=== PATIENT | female | born 1955 | race Caucasian/White ===

== ENCOUNTER → 2019-04-06 | Outpatient (CLI) | payer BC ==
[2013-11-30 17:46] VITALS: BP 111/57
[~2019-04-06] MED LIST: ACET500T33 PO; ALLO100T PO; AMLO1CAP13 PO; FLUT1DIS IH; IBUP-1060 PO; LEVO25TA4 PO; METF500T16 PO; MORP60CA17 PO; MORP60TA37 PO; PARO30TA45 PO; PRAV10TA2 PO; TRAZ-86 PO; VENTOLIN HFA18 GM IH
--- NOTE | 2019-04-06 16:21 | CARD ---
MR#: [id number] Date of Study: 04/06/2019 Ordering Physician: RUSSELL ZAMUDIO, Referring Physician: RUSSELL ZAMUDIO, Tech: Cony Singh [facility] APPROVED REPORT EXAM: Two-dimensional and M-mode echocardiogram with Doppler and color Doppler. Other Information Quality : Technically LimitedHR: 98bpm Rhythm : NSRTechnically limited study due to body habitus. INDICATION Murmur 2D DIMENSIONS RVDd2.8 (2.9-3.5cm)Left Atrium(2D)4.1 (1.6-4.0cm) IVSd0.9 (0.7-1.1cm)Aortic Root(2D)2.6 (2.0-3.7cm) LVDd4.8 (3.9-5.9cm)LVOT Diameter1.9 (1.8-2.4cm) PWd0.6 (0.7-1.1cm)LVDs2.6 (2.5-4.0cm) FS (%) 45.8 %SV81.6 ml LVEF(%)70.0 (>50%) Aortic Valve AoV Peak Beau.267.7cm/sAoV VTI40.6cm AO Peak GR.28.7mmHgLVOT Peak Beau.126.1cm/s LVOT VTI 17.97cmAO Mean GR.18mmHg CARRIE (VMAX)1.42na9JAJ (VTI)1.29cm2 AI P 1/2 Zltt079oy Mitral Valve MV E Bpbkzaly30.4cm/sMV DECEL BGPN031lo MV A Ypyiidwu799.2cm/sMV BVZ71dl E/A Ratio0.7MVA (PHT)3.74cm2 TDI E/Lateral E'10.7E/Medial E'9.4 Pulmonary Valve PV Peak Oirnwobo102.1cm/sPV Peak Grad.7mmHg Pulmonary Vein S1 Hhpycncd61.2cm/sD2 Niqylvzy41.7cm/s PVa thvuehgr298ydpl LEFT VENTRICLE The left ventricle is normal size. There is normal left ventricular wall thickness. The left ventricu lar systolic function is normal. The Ejection Fraction is 65-70%. There is normal LV segmental wall m otion. Transmitral Doppler flow pattern is Grade I-abnormal relaxation pattern. RIGHT VENTRICLE The right ventricle is normal size. There is normal right ventricular wall thickness. The right ventr icular systolic function is normal. ATRIA The left atrium is mildly dilated. The right atrium size is normal. The interatrial septum is intact with no evidence for an atrial septal defect or patent foramen ovale as noted on 2-D or Doppler imagi ng. AORTIC VALVE The aortic valve is not well visualized. Doppler and Color Flow revealed no significant aortic regurg itation. There is no significant aortic valvular stenosis. There is no aortic valvular vegetation. MITRAL VALVE The mitral valve is normal in structure and function. There is no evidence of mitral valve prolapse. There is no mitral valve stenosis. Doppler and Color Flow revealed no mitral valve regurgitation note d. TRICUSPID VALVE The tricuspid valve is normal in structure and function. Doppler and Color Flow revealed no tricuspid valve regurgitation noted. There is no tricuspid valve prolapse or vegetation. There is no tricuspid valve stenosis. PULMONIC VALVE The pulmonic valve is not well visualized. GREAT VESSELS The aortic root is normal in size. The ascending aorta is normal in size. The IVC is normal in size a nd collapses >50% with inspiration. PERICARDIAL EFFUSION There is no evidence of significant pericardial effusion. Critical Notification Critical Value: No <Conclusion> The left ventricular systolic function is normal. The Ejection Fraction is 65-70%. There is normal LV segmental wall motion. Transmitral Doppler flow pattern is Grade I-abnormal relaxation pattern. There is no evidence of significant pericardial effusion. Signed by : Morris Simmons, Electronically Approved : 04/06/2019 16:21:00
== END | disposition home or self-care (01) ==
LOC: ECHO 14:59
PROVIDERS: ATTEND Family Medicine
DX: I51.7 Cardiomegaly (principal); R01.1 Cardiac murmur, unspecified
CPT/HCPCS: 93306

== ENCOUNTER 2020-10-08 17:08 | Inpatient (IN) | payer BC ==
[~2020-10-08] VITALS: Ht 157.5 cm; Wt 107.0 kg
[~2020-10-08 17:08] MED LIST changes: +TRAZ-123 PO; -TRAZ-86 PO
--- NOTE | 2020-10-08 18:09 | PHYS DOC ---
Past Medical History Past Medical History: CHF, COPD, Fibromyalgia, Pneumonia, Other Additional Past Medical Histor: W Past Surgical History: Appendectomy Additional Past Surgical Histo: exploratory lab Alcohol Use: None Drug Use: None General Adult EDM: Chief Complaint: CHEST PAIN HPI: HPI: 65-year-old female past medical history of hypothyroidism, obesity, COPD on 2L NC, hypertension, fibromyalgia (hydrocodone 10/apap 325 bid), hyperlipidemia and pulmonary hypertension, presents the ED with complaints of left-sided sharp, nonradiating chest pain that started last night and then recurred this morning around 8 AM, lasting for approximately 15 minutes. Took 1 baby aspirin this morning. History of a cardiac murmur. Follows with Dr. Simmons with unremarkable cardiac stress in 2019. Unknown family medical history -patient is adopted. EMR was reviewed and patient had echocardiogram in March 2019 that showed normal EF. No personal history of Covid, coagulopathy/DVT/PE, arrhythmia, NSTEMI, CAD or STEMI. Patient present in ED with her , consents for her medical knowledge. Review of Systems: Review of Systems: Constitutional: Denies fever or chills. [] Eyes: Denies change in visual acuity. [] HENT: Denies nasal congestion or sore throat. [] Respiratory: Denies cough or shortness of breath. [] Cardiovascular: Denies syncope, hemoptysis or lower extremity edema GI: Denies abdominal pain, nausea, vomiting, bloody stools or diarrhea. [] : Denies dysuria or hematuria Musculoskeletal: Denies back pain or joint pain. [] Integument: Denies rash or diaphoresis Neurologic: Denies headache, focal weakness or sensory changes. [] Endocrine: Denies polyuria or polydipsia. [] Lymphatic: Denies swollen glands. [] Psychiatric: Denies depression or anxiety. [] Heart Score: C/O Chest Pain: Yes HEART Score for Chest Pain: HEART Score for Chest Pain Response (Comments) Value History Slighlty/Non-Suspicious 0 ECG Nonspecific Repolarizatio 1 Age > 65 2 Risk Factors >3 Risk Factors or Hx CAD 2 Troponin < Normal Limit 0 Total 5 Risk Factors: Risk Factors: DM, Current or recent (<one month) smoker, HTN, HLP, family history of CAD, obesity. Risk Scores: Score 0 - 3: 2.5% MACE over next 6 weeks - Discharge Home Score 4 - 6: 20.3% MACE over next 6 weeks - Admit for Clinical Observation Score 7 - 10: 72.7% MACE over next 6 weeks - Early Invasive Strategies Allergies: Allergies: Allergies Coded Allergies Type Severity Reaction Last Updated Verified latex Allergy Unknown 11/30/13 Yes Physical Exam: PE: Constitutional: Well developed, well nourished, no acute distress, non-toxic appearance, obese HENT: Normocephalic, atraumatic, Eyes: EOMI, conjunctiva normal, no discharge. Neck: Normal range of motion, supple, no JVD Cardiovascular: S1/2 present, regular rhythm, moderate systolic murmur over right upper parasternal space Lungs & Thorax: Speaking in full sentences, bilateral equal chest rise, no tachypnea or increased work of breathing Abdomen: soft, no tenderness, Skin: Warm, dry, no erythema, no rash. [] Back: No tenderness, no CVA tenderness. [] Extremities: No tenderness, no cyanosis, no lower extremity edema Neurologic: Alert and oriented X 3, normal motor function, normal sensory function, no focal deficits noted. [] Psychologic: Affect normal, judgement normal, mood normal. [] EKG: EKG: Sinus tachycardia 103 bpm, no axis deviation, normal intervals, T wave inversion lead III, Q-wave lead III, no S1, no ST elevations or ST depressions, no active chest pain in ED on presentation Radiology/Procedures: Radiology/Procedures: IMAGING REPORT Signed PATIENT: OLIVA DE LA ROSA ACCOUNT: [id number] : 1955 LOCATION: ER AGE: 65 SEX: F EXAM STATUS: REG ER ORD. PHYSICIAN: ZHANG CASTRO DO REASON: cp PROCEDURE: PORTABLE CHEST 1V XR CHEST 1V CLINICAL INDICATIONS: Chest pain: COMPARISON: November 30, 2013. Findings: Chronic interstitial thickening or chronic bronchitis is seen bilaterally. No new lung consolidation or Jenna B line's or pleural effusion or pneumothorax is seen. Heart size is prominent but stable. Mediastinum and pulmonary vasculature and both cristo are unchanged. IMPRESSION: Chronic interstitial thickening or chronic bronchitis is seen bilaterally. No new abnormality. Stable cardiomegaly. Electronically signed by: Terence Vasquez MD (10/08/2020 7:06 PM) [id number] DICTATED and SIGNED BY: TERENCE VASQUEZ MD DATE: 10/08/20 [id number] 0 IMAGING REPORT Signed PATIENT: OLIVA DE LA ROSA ACCOUNT: [id number] : 1955 LOCATION: ER AGE: 65 SEX: F EXAM STATUS: REG ER ORD. PHYSICIAN: ZHANG CASTRO DO REASON: cp, r/o pe, OMNI 350, 100 ML IV PROCEDURE: CT ANGIOGRAPHY CHEST CTA chest with contrast dated 10/08/2020. No comparison available. Clinical data indication: Chest pain. TECHNIQUE: Contiguous axial imaging the chest performed following the intravenous administration of 80 cc Isovue-370. Study was performed as dedicated PE protocol with thin cut coronal MIPS 3-D reconstruction. One or more of the following individualized dose reduction techniques were utilized for this examination: 1. Automated exposure control 2. Adjustment of the mA and/or kV according to patient size 3. Use of iterative reconstruction technique. FINDINGS: Contrast bolus is adequate. No evidence of central, lobar or segmental pulmonary embolus. Subsegmental branches are not well evaluated based on technique. 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 The main pulmonary artery is mildly dilated measuring 3.5 cm suggesting pulmonary hypertension. Heart size is mildly enlarged. No pericardial effusion. No mediastinal, hilar or axillary lymphadenopathy. Borderline enlarged subcarinal and bilateral hilar lymph nodes measure up to 8 mm short axis, nonspecific. Scattered coronary calcifications. No axillary or supraclavicular lymphadenopathy. Central airways are patent. There is irregular linear peripheral opacity throughout both lungs. Diffuse bronchiectasis. No consolidation or pleural effusion. No pneumothorax. Mild emphysema. Images of the upper abdomen are unremarkable. Liver is somewhat enlarged and nodular in contour. Small hiatal hernia. Bone windows show no acute findings. Multilevel spondylosis. IMPRESSION: 1. No evidence of central, lobar or segmental pulmonary embolus. 2. Basilar predominant irregular interstitial opacities and bronchiectasis. This is likely related to chronic interstitial lung disease. Superimposed low-grade edema not excluded. 3. 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 Electronically signed by: Varun Tamayo MD (10/08/2020 11:23 PM) [facility] DICTATED and SIGNED BY: VARUN TAMAYO MD DATE: 10/08/20 [id number] 0 Course & Med Decision Making: Course & Med Decision Making Pertinent Labs and Imaging studies reviewed. (See chart for details) Lengthy ED stay due to high volume in ED, ed acuity of critical patients and indecisiveness of patient regarding my recommendations -this required multiple discussions with pt and her with myself and rn. Concern for atypical chest pain/unstable angina in a moderate risk for Mace/heart score. No stress test in past 2 years. panel monitor reviewed by RN and myself and is concernrf for nonsustained V. tach < 10 seconds. 2 troponins negative. D-dimer is elevated but CTA with no PE, coronary calcifications present. Will admit for further med ical management and cardiology consultation. Patient stable at time of admission and she agrees with this plan. I have spoken with the patient and/or caregivers. I have explained the patient's condition, diagnosis and treatment plan based on the information available to me at this time. I have answered the patient's and/or caregivers questions and answered any concerns. The patient and/or caregivers have as good an understanding of the patient's diagnosis, condition and treatment plan as can be expected at this point. The patient has been stabilized within the capability of the emergency department. The patient will be transported for further care and management or will be moved to an observation or inpatient service. I have communicated with the staff or medical practitioner taking over this patient's care. Marlyn Disclaimer: Marlyn Disclaimer: This electronic medical record was generated, in whole or in part, using a voice recognition dictation system. Departure Departure Impression: Primary Impression: Atypical chest pain Additional Impression: Ventricular tachycardia, nonsustained Disposition: ADMITTED INPATIENT Admitting Physician: BRYAN (Dr. Cadleron) Condition: GUARDED Referrals: VARUN ZAMUDIO MD (PCP) ZHANG CASTRO DO Oct 08, 2020 18:09
[2020-10-08 18:29] LABS: BASO % 1 % (0-3); EOS # 0.2 x10^3/uL (0.0-0.7); EOS % 3 % (0-3); HEMATOCRIT 38.8 % (36.0-47.0); HEMOGLOBIN 13.4 g/dL (12.0-15.5); LYMPH # 2.2 x10^3/uL (1.0-4.8); LYMPH % 29 % (24-48); MEAN CORPUSCULAR HEMOGLOBIN 35 pg (25-35); MEAN CORPUSCULAR HGB CONC 35 g/dL (31-37); MEAN CORPUSCULAR VOLUME 100 fL (79-100); MONO # 0.6 x10^3/uL (0.0-1.1); MONO % 8 % (0-9); NEUT # 4.4 x10^3/uL (1.8-7.7); NEUT % 59 % (31-73); PLATELET COUNT 170 x10^3/uL (140-400); RED BLOOD COUNT 3.86 x10^6/uL (3.50-5.40); WHITE BLOOD COUNT 7.4 x10^3/uL (4.0-11.0)
[2020-10-08 18:44] LABS: BARBITURATES NEG (NEG); BENZODIAZEPINES NEG (NEG); CANNABINOIDS POS (NEG); COCAINE NEG (NEG); METHADONE NEG (NEG); OPIATES POS (NEG); PHENCYCLIDINE NEG (NEG)
[2020-10-08 18:45] LABS: AMPHETAMINE/METHAMPHETAMINE NEG (NEG)
[2020-10-08 18:47] LABS: CALCIUM 8.7 mg/dL (8.5-10.1); CREATININE 0.8 mg/dL (0.6-1.0); POTASSIUM 4.4 mmol/L (3.5-5.1)
[2020-10-08 18:49] LABS: ALBUMIN/GLOBULIN RATIO 1.3 (1.0-1.7); MAGNESIUM 1.9 mg/dL (1.8-2.4); TOTAL BILIRUBIN 0.7 mg/dL (0.2-1.0); TOTAL PROTEIN 7.2 g/dL (6.4-8.2)
--- NOTE | 2020-10-08 19:09 | RAD ---
XR CHEST 1V CLINICAL INDICATIONS: Chest pain: COMPARISON: November 30, 2013. Findings: Chronic interstitial thickening or chronic bronchitis is seen bilaterally. No new lung cons olidation or Jenna B line's or pleural effusion or pneumothorax is seen. Heart size is prominent but stable. Mediastinum and pulmonary vasculature and both cristo are unchanged. IMPRESSION: Chronic interstitial thickening or chronic bronchitis is seen bilaterally. No new abnorma lity. Stable cardiomegaly. Electronically signed by: Raghu Vasquez MD (10/08/2020 7:06 PM) [id number]
[2020-10-08] MEDS ORDERED: CONTRAST GIVEN. MC PRN (21:45)
[2020-10-08] MEDS ORDERED: IOHEXOL 350 MG/ML 100 ML VIAL. IV ONE (22:00)
--- NOTE | 2020-10-08 23:25 | RAD ---
CTA chest with contrast dated 10/08/2020. No comparison available. Clinical data indication: Chest pain. TECHNIQUE: Contiguous axial imaging the chest performed following the intravenous administration of 80 cc Isovue -370. Study was performed as dedicated PE protocol with thin cut coronal MIPS 3-D reconstruction. One or more of the following individualized dose reduction techniques were utilized for this examinat ion: 1. Automated exposure control 2. Adjustment of the mA and/or kV according to patient size 3. Use of iterative reconstruction technique. FINDINGS: Contrast bolus is adequate. No evidence of central, lobar or segmental pulmonary embolus. Subsegmenta l branches are not well evaluated based on technique. There is anomalous drainage of the left upper l obe pulmonary vein into the left brachiocephalic vein and SVC. The main pulmonary artery is mildly di lated measuring 3.5 cm suggesting pulmonary hypertension. Heart size is mildly enlarged. No pericardial effusion. No mediastinal, hilar or axillary lymphadenop athy. Borderline enlarged subcarinal and bilateral hilar lymph nodes measure up to 8 mm short axis, n onspecific. Scattered coronary calcifications. No axillary or supraclavicular lymphadenopathy. Central airways are patent. There is irregular linear peripheral opacity throughout both lungs. Diffu se bronchiectasis. No consolidation or pleural effusion. No pneumothorax. Mild emphysema. Images of the upper abdomen are unremarkable. Liver is somewhat enlarged and nodular in contour. Smal l hiatal hernia. Bone windows show no acute findings. Multilevel spondylosis. IMPRESSION: 1. No evidence of central, lobar or segmental pulmonary embolus. 2. Basilar predominant irregular interstitial opacities and bronchiectasis. This is likely related to chronic interstitial lung disease. Superimposed low-grade edema not excluded. 3. 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 Electronically signed by: Varun Tamayo MD (10/08/2020 11:23 PM) [facility]
--- NOTE | 2020-10-09 00:27 | EKG ---
[facility] [address] [place] [address] Test Date: 2020-10-08 Test Time: 17:29:50 Pat Name: OLIVA DE LA ROSA Department: Room: Gender: F Bundle Clerk: : 1955 Requested By: ZHANG CASTRO Order Number: [id number] Reading MD: Measurements Intervals [place] Rate: 103 P: 51 [place]: 162 QRS: 15 QRSD: 92 T: 18 QT: 344 QTc: 453 Interpretive Statements SINUS TACHYCARDIA QRS(T) CONTOUR ABNORMALITY CONSIDER ANTEROLATERAL MYOCARDIAL DAMAGE POSSIBLY ABNORMAL ECG RI6.01 No previous ECG available for comparison
[2020-10-09] MEDS ORDERED: HYDROmorphone 2 MG/ML VIAL IVP ONE (01:00)
[2020-10-09] MEDS ORDERED: amLODIPine BESYLATE 10 MG TABLET PO ONE (04:15)
[2020-10-09] MEDS ORDERED: LISINOPRIL 20 MG TABLET PO ONE (04:15)
--- NOTE | 2020-10-09 08:06 | PDOC1 ---
History and Physical Date of Admission Date of Admission DATE: 10/09/20 TIME: 08:00 Identification/Chief Complaint Chief Complaint Chest pain Source Source: Patient History of Present Illness History of Present Illness Ms Kirkland is a 65-year-old female past medical history of hypothyroidism, obesity, COPD on 2L NC, hypertension, fibromyalgia (hydrocodone 10/apap 325 bid), hyperlipidemia and pulmonary hypertension, presents the ED with complaints of left-sided sharp, nonradiating chest pain that started last night and then recurred 10/08 in the morning around 8 AM, lasting for approximately 15 minutes. Took 1 baby aspirin this morning. History of a cardiac murmur. Follows with Dr. Simmons with unremarkable cardiac stress June 2019, low risk study. Unknown family medical history -patient is adopted. EMR was reviewed and patient had echocardiogram in March 2019 that showed normal EF. No personal history of Covid, coagulopathy/DVT/PE, arrhythmia, NSTEMI, CAD or STEMI. She has history of peptic ulcer disease and GERD. Has previously been on PPI. She is never seen a hired hand. She feels like this is probably fibromyalgia. EKG appears sinus tachycardia with rate 103 bpm with Q waves seen in anterior lateral leads indicating possible prior cardiac event. No acute ST segment elevations or T wave inversions. Chest radiograph with chronic bibasilar interstitial changes. Labs with WBC 7.4, Hb 13.4, platelets 170, NA 143, K4.4, BUN 12, CR 0.8, glucose 85, lipase 42, LFTs otherwise within normal laboratory limits. Troponin 0, D- dimer 2.64. Cannabinoids and opioids on UDS. With elevated D-dimer patient underwent a CTPA which was negative for acute pulmonary embolism. Chronic bibasilar interstitial changes are still noted. Patient admitted for further care. Past Medical History Cardiovascular: CHF, HTN Pulmonary: Bronchitis, COPD CENTRAL NERVOUS SYSTEM: Other Musculoskeletal: low back pain Past Surgical History Past Surgical History: Appendectomy, Hysterectomy Family History Family History: Family History Unknown, Adopted Social History Smoke: No ALCOHOL: rare Drugs: None Current Problem List Problem List Problems Medical Problems: (1) Atypical chest pain Status: Acute (2) Ventricular tachycardia, nonsustained Status: Acute Current Medications Current Medications Current Medications Iohexol (Omnipaque 350 Mg/ml) 100 ml 1X ONCE IV ; Start 10/08/20 at 22:00; Stop 10/08/20 at 22:01; Status DC Info (CONTRAST GIVEN -- Rx MONITORING) 1 each PRN DAILY PRN MC SEE COMMENTS; Start 10/08/20 at 21:45; Stop 10/10/20 at 21:44 Hydromorphone HCl (Dilaudid) 1 mg 1X ONCE IVP Last administered on 10/09/20at 01:09; Start 10/09/20 at 01:00; Stop 10/09/20 at 01:01; Status DC Amlodipine Besylate (Norvasc) 10 mg 1X ONCE PO Last administered on 10/09/20at 04:38; Start 10/09/20 at 04:15; Stop 10/09/20 at 04:16; Status DC Lisinopril (Prinivil) 20 mg 1X ONCE PO Last administered on 10/09/20at 04:38; Start 10/09/20 at 04:15; Stop 10/09/20 at 04:16; Status DC Active Scripts Active Reported Ms Contin (Morphine Sulfate) 60 Mg Tablet.er 60 Mg PO BID Tylenol Extra Strength (Acetaminophen) 500 Mg Tablet 500 Mg PO Q6HRS PRN Paxil (Paroxetine Hcl) 30 Mg Tablet 60 Mg PO HS Advair 100-50 Diskus (Fluticasone/Salmeterol) 1 Each Disk.w.dev 1 Each IH BID Allopurinol 100 Mg Tablet 100 Mg PO QHS Amlodipine-Benazepril 10-20 Mg (Amlodipine Besylate/Benazepril) 1 Each Capsule 1 Each PO QHS Pravastatin Sodium 10 Mg Tablet 10 Mg PO QHS Levothyroxine Sodium 25 Mcg Tablet 25 Mcg PO DAILY Allergies Allergies: Coded Allergies: latex (Verified Allergy, Intermediate, 10/09/20) ROS General: YES: Fatigue, Malaise; No: Chills, Night Sweats, Appetite, Other PSYCHOLOGICAL ROS: No: Anxiety, Behavioral Disorder, Concentration difficultie, Decreased libido, Depression, Disorientation, Hallucinations, Hostility, Irritablity, Memory difficulties, Mood Swings, Obsessive thoughts, Physical abuse, Sexual abuse, Sleep disturbances, Suicidal ideation, Other Eyes: No Blurry vision, No Decreased vision, No Double vision, No Dry eyes, No Excessive tearing, No Eye Pain, No Itchy Eyes, No Loss of vision, No Photophobia, No Scotomata, No Uses contacts, No Uses glasses, No Other HEENT: No: Heacaches, Visual Changes, Hearing change, Nasal congestion, Nasal discharge, Oral lesions, Sinus pain, Sore Throat, Epistaxis, Sneezing, Snoring, Tinnitus, Vertigo, Vocal changes, Other ALLERGY AND IMMUNOLOGY: No: Hives, Insect Bite Sensitivity, Itchy/Watery Eyes, Nasal Congestion, Post Nasal Drip, Seasonal Allergies, Other Hematological and Lymphatic: No: Bleeding Problems, Blood Clots, Blood Transfusions, Brusing, Night Sweats, Pallor, Swollen Lymph Nodes, Other ENDOCRINE: No: Breast Changes, Galactorrhea, Hair Pattern Changes, Hot Flashes, Malaise/lethargy, Mood Swings, Palpitations, Polydipsia/polyuria, Skin Changes, Temperature Intolerance, Unexpected Weight Changes, Other Respiratory: No: Cough, Hemoptysis, Orthopnea, Pleuritic Pain, Shortness of breath, SOB with excertion, Sputum Changes, Stridor, Tachypnea, Wheezing, Other Cardiovascular: yes Chest Pain; No Palpitations, No Orthopnea, No Paroxysmal Noc. Dyspnea, No Edema, No Lt Headedness, No Other Gastrointestinal: Yes Nausea; No Vomiting, No Abdominal Pain, No Diarrhea, No Constipation, No Melena, No Hematochezia, No Other Genitourinary: No Dysuria, No Frequency, No Incontinence, No Hematuria, No Retention, No Discharge, No Urgency, No Pain, No Flank Pain, No Other, No , No , No , No , No , No , No Musculoskeletal: No Gait Disturbance, No Joint Pain, No Joint Stiffness, No Joint Swelling, No Muscle Pain, No Muscular Weakness, No Pain In:, No Swelling In:, No Other Neurological: No Behavorial Changes, No Bowel/Bladder ControlChng, No Confusion, No Dizziness, No Gait Disturbance, No Headaches, No Impaired Coord/balance, No Memory Loss, No Numbness/Tingling, No Seizures, No Speech Problems, No Tremors, No Visual Changes, No Weakness, No Other Skin: No Dry Skin, No Eczema, No Hair Changes, No Lumps, No Mole Changes, No Mottling, No Nail Changes, No Pruritus, No Rash, No Skin Lesion Changes, No Other, No Acne Physical Exam General: Alert, Oriented X3, Cooperative, No acute distress HEENT: Atraumatic, PERRLA, EOMI, Mucous membr. moist/pink Lungs: Other (Bilateral crackles) Heart: S1S2, RRR, no thrills, no rubs, no gallops, no murmurs Abdomen: Normal bowel sounds, Soft, No tenderness, No hepatosplenomegaly, No masses Rectal Exam: not examined Extremities: No clubbing, No cyanosis, No edema, Normal pulses, No tenderness/swelling Skin: No rashes, No breakdown, No significant lesion Neuro: Normal gait, Normal speech, Strength at 5/5 X4 ext, Normal tone, Sensation intact, Cranial nerves 3-12 NL, Reflexes 2+ Psych/Mental Status: Mental status NL, Mood NL Vitals Vitals Vital Signs Date Time Temp Pulse Resp B/P (MAP) Pulse Ox O2 Delivery O2 Flow Rate FiO2 10/09/20 04:38 93 106/62 10/09/20 04:37 18 93 Nasal Cannula 2.0 10/09/20 03:47 98.6 98.6 Labs Labs Laboratory Tests Test 10/08/20 18:10 10/08/20 18:20 10/08/20 21:45 10/09/20 01:05 Urine Opiates Screen Pos (NEG) Urine Methadone Screen Neg (NEG) Urine Barbiturates Neg (NEG) Urine Phencyclidine Screen Neg (NEG) Urine Amphetamine/Methamphetamine Neg (NEG) Urine Benzodiazepines Screen Neg (NEG) Urine Cocaine Screen Neg (NEG) Urine Cannabinoids Screen Pos (NEG) Urine Ethyl Alcohol Neg (NEG) White Blood Count 7.4 x10^3/uL (4.0-11.0) Red Blood Count 3.86 x10^6/uL (3.50-5.40) Hemoglobin 13.4 g/dL (12.0-15.5) Hematocrit 38.8 % (36.0-47.0) Mean Corpuscular Volume 100 fL (79-100) Mean Corpuscular Hemoglobin 35 pg (25-35) Mean Corpuscular Hemoglobin Concent 35 g/dL (31-37) Red Cell Distribution Width 14.0 % (11.5-14.5) Platelet Count 170 x10^3/uL (140-400) Neutrophils (%) (Auto) 59 % (31-73) Lymphocytes (%) (Auto) 29 % (24-48) Monocytes (%) (Auto) 8 % (0-9) Eosinophils (%) (Auto) 3 % (0-3) Basophils (%) (Auto) 1 % (0-3) Neutrophils # (Auto) 4.4 x10^3/uL (1.8-7.7) Lymphocytes # (Auto) 2.2 x10^3/uL (1.0-4.8) Monocytes # (Auto) 0.6 x10^3/uL (0.0-1.1) Eosinophils # (Auto) 0.2 x10^3/uL (0.0-0.7) Basophils # (Auto) 0.0 x10^3/uL (0.0-0.2) D-Dimer (Misty) 2.64 ug/mlFEU (0.00-0.50) Sodium Level 143 mmol/L (136-145) Potassium Level 4.4 mmol/L (3.5-5.1) Chloride Level 106 mmol/L (98-107) Carbon Dioxide Level 28 mmol/L (21-32) Anion Gap 9 (6-14) Blood Urea Nitrogen 12 mg/dL (7-20) Creatinine 0.8 mg/dL (0.6-1.0) Estimated GFR (Cockcroft-Gault) 72.0 BUN/Creatinine Ratio 15 (6-20) Glucose Level 85 mg/dL (70-99) Calcium Level 8.7 mg/dL (8.5-10.1) Phosphorus Level 4.3 mg/dL (2.6-4.7) Magnesium Level 1.9 mg/dL (1.8-2.4) Total Bilirubin 0.7 mg/dL (0.2-1.0) Aspartate Amino Transf (AST/SGOT) 36 U/L (15-37) Alanine Aminotransferase (ALT/SGPT) 36 U/L (14-59) Alkaline Phosphatase 127 U/L (46-116) Troponin I Quantitative < 0.017 ng/mL (0.000-0.055) < 0.017 ng/mL (0.000-0.055) < 0.017 ng/mL (0.000-0.055) XA-Fhl-J-Type Natriuretic Peptide 100 pg/mL (0-124) Total Protein 7.2 g/dL (6.4-8.2) Albumin 4.0 g/dL (3.4-5.0) Albumin/Globulin Ratio 1.3 (1.0-1.7) Lipase 92 U/L (73-393) Laboratory Tests Test 10/08/20 18:10 10/08/20 18:20 10/08/20 21:45 10/09/20 01:05 Urine Opiates Screen Pos (NEG) Urine Methadone Screen Neg (NEG) Urine Barbiturates Neg (NEG) Urine Phencyclidine Screen Neg (NEG) Urine Amphetamine/Methamphetamine Neg (NEG) Urine Benzodiazepines Screen Neg (NEG) Urine Cocaine Screen Neg (NEG) Urine Cannabinoids Screen Pos (NEG) Urine Ethyl Alcohol Neg (NEG) White Blood Count 7.4 x10^3/uL (4.0-11.0) Red Blood Count 3.86 x10^6/uL (3.50-5.40) Hemoglobin 13.4 g/dL (12.0-15.5) Hematocrit 38.8 % (36.0-47.0) Mean Corpuscular Volume 100 fL (79-100) Mean Corpuscular Hemoglobin 35 pg (25-35) Mean Corpuscular Hemoglobin Concent 35 g/dL (31-37) Red Cell Distribution Width 14.0 % (11.5-14.5) Platelet Count 170 x10^3/uL (140-400) Neutrophils (%) (Auto) 59 % (31-73) Lymphocytes (%) (Auto) 29 % (24-48) Monocytes (%) (Auto) 8 % (0-9) Eosinophils (%) (Auto) 3 % (0-3) Basophils (%) (Auto) 1 % (0-3) Neutrophils # (Auto) 4.4 x10^3/uL (1.8-7.7) Lymphocytes # (Auto) 2.2 x10^3/uL (1.0-4.8) Monocytes # (Auto) 0.6 x10^3/uL (0.0-1.1) Eosinophils # (Auto) 0.2 x10^3/uL (0.0-0.7) Basophils # (Auto) 0.0 x10^3/uL (0.0-0.2) D-Dimer (Misty) 2.64 ug/mlFEU (0.00-0.50) Sodium Level 143 mmol/L (136-145) Potassium Level 4.4 mmol/L (3.5-5.1) Chloride Level 106 mmol/L (98-107) Carbon Dioxide Level 28 mmol/L (21-32) Anion Gap 9 (6-14) Blood Urea Nitrogen 12 mg/dL (7-20) Creatinine 0.8 mg/dL (0.6-1.0) Estimated GFR (Cockcroft-Gault) 72.0 BUN/Creatinine Ratio 15 (6-20) Glucose Level 85 mg/dL (70-99) Calcium Level 8.7 mg/dL (8.5-10.1) Phosphorus Level 4.3 mg/dL (2.6-4.7) Magnesium Level 1.9 mg/dL (1.8-2.4) Total Bilirubin 0.7 mg/dL (0.2-1.0) Aspartate Amino Transf (AST/SGOT) 36 U/L (15-37) Alanine Aminotransferase (ALT/SGPT) 36 U/L (14-59) Alkaline Phosphatase 127 U/L (46-116) Troponin I Quantitative < 0.017 ng/mL (0.000-0.055) < 0.017 ng/mL (0.000-0.055) < 0.017 ng/mL (0.000-0.055) RR-Phi-W-Type Natriuretic Peptide 100 pg/mL (0-124) Total Protein 7.2 g/dL (6.4-8.2) Albumin 4.0 g/dL (3.4-5.0) Albumin/Globulin Ratio 1.3 (1.0-1.7) Lipase 92 U/L (73-393) Images Images Chest radiograph: Chronic interstitial thickening or chronic bronchitis is seen bilaterally. No new lung consolidation or Jenna B line's or pleural effusion or pneumothorax is seen. Heart size is prominent but stable. Mediastinum and pulmonary vasculature and both cristo are unchanged. IMPRESSION: Chronic interstitial thickening or chronic bronchitis is seen bilaterally. No new abnormality. Stable cardiomegaly. CTPA: Contrast bolus is adequate. No evidence of central, lobar or segmental pulmonary embolus. Subsegmental branches are not well evaluated based on technique. 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 The main pulmonary artery is mildly dilated measuring 3.5 cm suggesting pulmonary hypertension. Heart size is mildly enlarged. No pericardial effusion. No mediastinal, hilar or axillary lymphadenopathy. Borderline enlarged subcarinal and bilateral hilar lymph nodes measure up to 8 mm short axis, nonspecific. Scattered coronary calcifications. No axillary or supraclavicular lymphadenopathy. Central airways are patent. There is irregular linear peripheral opacity throughout both lungs. Diffuse bronchiectasis. No consolidation or pleural effusion. No pneumothorax. Mild emphysema. Images of the upper abdomen are unremarkable. Liver is somewhat enlarged and nodular in contour. Small hiatal hernia. Bone windows show no acute findings. Multilevel spondylosis. IMPRESSION: 1. No evidence of central, lobar or segmental pulmonary embolus. 2. Basilar predominant irregular interstitial opacities and bronchiectasis. This is likely related to chronic interstitial lung disease. Superimposed low-grade edema not excluded. 3. 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 VTE Prophylaxis Ordered VTE Prophylaxis Devices: No VTE Pharmacological Prophylaxi: Yes Assessment/Plan Assessment/Plan A/P: Chest pain - likely GERD, will monitor final troponin, telemetry reviewed with NSVT <6 seconds. EKG no changes. Cardiology consulted. Outpatient stress testing indicated. Abnormal CT - appears to be ILD. Has outpatient pulm f/u as well as chronic home O2 Hypothyroidism - compliant with home meds Obesity - morbid obesity - counseled on lifestyle modification COPD on 2L NC - on home O2 currently Hypertension Fibromyalgia (hydrocodone 10/apap 325 bid) - counseled on non-opioid treatment for fibromyalgia Hyperlipidemia - statin Pulmonary hypertension - likely due to structural lung disease. Has outpatient f/u FEN - Cardiac diet PPX - lovenox FULL CODE Dispo - inpatient Justifications for Admission Other Justification JOSIAS BAKER MD Oct 09, 2020 08:06
--- NOTE | 2020-10-09 10:51 | PDOC3 ---
Discharge Summary Visit Information Date of Admission: Oct 09, 2020 Date of Discharge: Oct 09, 2020 Admitting Diagnosis: Chest pain Final Diagnosis Problems Medical Problems: (1) Atypical chest pain Status: Acute (2) Ventricular tachycardia, nonsustained Status: Acute Brief Hospital Course Allergies Allergies Coded Allergies Type Severity Reaction Last Updated Verified latex Allergy Intermediate 10/09/20 Yes Vital Signs Vital Signs Date Time Temp Pulse Resp B/P (MAP) Pulse Ox O2 Delivery O2 Flow Rate FiO2 10/09/20 09:18 92 24 117/63 (81) 96 2.0 10/09/20 04:37 Nasal Cannula 10/09/20 03:47 98.6 98.6 Lab Results Laboratory Tests Test 10/08/20 18:10 10/08/20 18:20 10/08/20 21:45 10/09/20 01:05 Urine Opiates Screen Pos (NEG) Urine Methadone Screen Neg (NEG) Urine Barbiturates Neg (NEG) Urine Phencyclidine Screen Neg (NEG) Urine Amphetamine/Methamphetamine Neg (NEG) Urine Benzodiazepines Screen Neg (NEG) Urine Cocaine Screen Neg (NEG) Urine Cannabinoids Screen Pos (NEG) Urine Ethyl Alcohol Neg (NEG) White Blood Count 7.4 x10^3/uL (4.0-11.0) Red Blood Count 3.86 x10^6/uL (3.50-5.40) Hemoglobin 13.4 g/dL (12.0-15.5) Hematocrit 38.8 % (36.0-47.0) Mean Corpuscular Volume 100 fL (79-100) Mean Corpuscular Hemoglobin 35 pg (25-35) Mean Corpuscular Hemoglobin Concent 35 g/dL (31-37) Red Cell Distribution Width 14.0 % (11.5-14.5) Platelet Count 170 x10^3/uL (140-400) Neutrophils (%) (Auto) 59 % (31-73) Lymphocytes (%) (Auto) 29 % (24-48) Monocytes (%) (Auto) 8 % (0-9) Eosinophils (%) (Auto) 3 % (0-3) Basophils (%) (Auto) 1 % (0-3) Neutrophils # (Auto) 4.4 x10^3/uL (1.8-7.7) Lymphocytes # (Auto) 2.2 x10^3/uL (1.0-4.8) Monocytes # (Auto) 0.6 x10^3/uL (0.0-1.1) Eosinophils # (Auto) 0.2 x10^3/uL (0.0-0.7) Basophils # (Auto) 0.0 x10^3/uL (0.0-0.2) D-Dimer (Misty) 2.64 ug/mlFEU (0.00-0.50) Sodium Level 143 mmol/L (136-145) Potassium Level 4.4 mmol/L (3.5-5.1) Chloride Level 106 mmol/L (98-107) Carbon Dioxide Level 28 mmol/L (21-32) Anion Gap 9 (6-14) Blood Urea Nitrogen 12 mg/dL (7-20) Creatinine 0.8 mg/dL (0.6-1.0) Estimated GFR (Cockcroft-Gault) 72.0 BUN/Creatinine Ratio 15 (6-20) Glucose Level 85 mg/dL (70-99) Calcium Level 8.7 mg/dL (8.5-10.1) Phosphorus Level 4.3 mg/dL (2.6-4.7) Magnesium Level 1.9 mg/dL (1.8-2.4) Total Bilirubin 0.7 mg/dL (0.2-1.0) Aspartate Amino Transf (AST/SGOT) 36 U/L (15-37) Alanine Aminotransferase (ALT/SGPT) 36 U/L (14-59) Alkaline Phosphatase 127 U/L (46-116) Troponin I Quantitative < 0.017 ng/mL (0.000-0.055) < 0.017 ng/mL (0.000-0.055) < 0.017 ng/mL (0.000-0.055) OT-Hsw-Z-Type Natriuretic Peptide 100 pg/mL (0-124) Total Protein 7.2 g/dL (6.4-8.2) Albumin 4.0 g/dL (3.4-5.0) Albumin/Globulin Ratio 1.3 (1.0-1.7) Lipase 92 U/L (73-393) Test 10/09/20 07:28 Troponin I Quantitative < 0.017 ng/mL (0.000-0.055) Laboratory Tests Test 10/08/20 18:10 10/08/20 18:20 10/08/20 21:45 10/09/20 01:05 Urine Opiates Screen Pos (NEG) Urine Methadone Screen Neg (NEG) Urine Barbiturates Neg (NEG) Urine Phencyclidine Screen Neg (NEG) Urine Amphetamine/Methamphetamine Neg (NEG) Urine Benzodiazepines Screen Neg (NEG) Urine Cocaine Screen Neg (NEG) Urine Cannabinoids Screen Pos (NEG) Urine Ethyl Alcohol Neg (NEG) White Blood Count 7.4 x10^3/uL (4.0-11.0) Red Blood Count 3.86 x10^6/uL (3.50-5.40) Hemoglobin 13.4 g/dL (12.0-15.5) Hematocrit 38.8 % (36.0-47.0) Mean Corpuscular Volume 100 fL (79-100) Mean Corpuscular Hemoglobin 35 pg (25-35) Mean Corpuscular Hemoglobin Concent 35 g/dL (31-37) Red Cell Distribution Width 14.0 % (11.5-14.5) Platelet Count 170 x10^3/uL (140-400) Neutrophils (%) (Auto) 59 % (31-73) Lymphocytes (%) (Auto) 29 % (24-48) Monocytes (%) (Auto) 8 % (0-9) Eosinophils (%) (Auto) 3 % (0-3) Basophils (%) (Auto) 1 % (0-3) Neutrophils # (Auto) 4.4 x10^3/uL (1.8-7.7) Lymphocytes # (Auto) 2.2 x10^3/uL (1.0-4.8) Monocytes # (Auto) 0.6 x10^3/uL (0.0-1.1) Eosinophils # (Auto) 0.2 x10^3/uL (0.0-0.7) Basophils # (Auto) 0.0 x10^3/uL (0.0-0.2) D-Dimer (Misty) 2.64 ug/mlFEU (0.00-0.50) Sodium Level 143 mmol/L (136-145) Potassium Level 4.4 mmol/L (3.5-5.1) Chloride Level 106 mmol/L (98-107) Carbon Dioxide Level 28 mmol/L (21-32) Anion Gap 9 (6-14) Blood Urea Nitrogen 12 mg/dL (7-20) Creatinine 0.8 mg/dL (0.6-1.0) Estimated GFR (Cockcroft-Gault) 72.0 BUN/Creatinine Ratio 15 (6-20) Glucose Level 85 mg/dL (70-99) Calcium Level 8.7 mg/dL (8.5-10.1) Phosphorus Level 4.3 mg/dL (2.6-4.7) Magnesium Level 1.9 mg/dL (1.8-2.4) Total Bilirubin 0.7 mg/dL (0.2-1.0) Aspartate Amino Transf (AST/SGOT) 36 U/L (15-37) Alanine Aminotransferase (ALT/SGPT) 36 U/L (14-59) Alkaline Phosphatase 127 U/L (46-116) Troponin I Quantitative < 0.017 ng/mL (0.000-0.055) < 0.017 ng/mL (0.000-0.055) < 0.017 ng/mL (0.000-0.055) LD-Ysv-U-Type Natriuretic Peptide 100 pg/mL (0-124) Total Protein 7.2 g/dL (6.4-8.2) Albumin 4.0 g/dL (3.4-5.0) Albumin/Globulin Ratio 1.3 (1.0-1.7) Lipase 92 U/L (73-393) Test 10/09/20 07:28 Troponin I Quantitative < 0.017 ng/mL (0.000-0.055) Brief Hospital Course Ms Kirkland is a 65-year-old female past medical history of hypothyroidism, obesity, COPD on 2L NC, hypertension, fibromyalgia (hydrocodone 10/apap 325 bid), hyperlipidemia and pulmonary hypertension, presents the ED with complaints of left-sided sharp, nonradiating chest pain that started last night and then recurred 10/08 in the morning around 8 AM, lasting for approximately 15 minutes. Took 1 baby aspirin this morning. History of a cardiac murmur. Follows with Dr. Simmons with unremarkable cardiac stress June 2019, low risk study. Unknown family medical history -patient is adopted. EMR was reviewed and patient had echocardiogram in March 2019 that showed normal EF. No personal history of Covid, coagulopathy/DVT/PE, arrhythmia, NSTEMI, CAD or STEMI. She has history of peptic ulcer disease and GERD. Has previously been on PPI. She is never seen a marketing secretary. She feels like this is probably fibromyalgia. EKG appears sinus tachycardia with rate 103 bpm with Q waves seen in anterior lateral leads indicating possible prior cardiac event. No acute ST segment elevations or T wave inversions. Chest radiograph with chronic bibasilar interstitial changes. Labs with WBC 7.4, Hb 13.4, platelets 170, NA 143, K4.4, BUN 12, CR 0.8, glucose 85, lipase 42, LFTs otherwise within normal laboratory limits. Troponin 0, D- dimer 2.64. Cannabinoids and opioids on UDS. With elevated D-dimer patient underwent a CTPA which was negative for acute pulmonary embolism. Chronic bibasilar interstitial changes are still noted. Patient admitted for further care, troponins and telemetry reviewed, with the exception of 2-3 seconds of NSVT her pain resolved. She has outpatient f/u with GI per a referral and is going to restart PPI for 30 days. Consults: Cardiology Problem list: Chest pain - likely GERD, will monitor final troponin, telemetry reviewed with NSVT <6 seconds. EKG no changes. Cardiology consulted. Outpatient stress testing indicated. Abnormal CT - appears to be ILD. Has outpatient pulm f/u as well as chronic home O2 Hypothyroidism - compliant with home meds Obesity - morbid obesity - counseled on lifestyle modification COPD on 2L NC - on home O2 currently Hypertension Fibromyalgia (hydrocodone 10/apap 325 bid) - counseled on non-opioid treatment for fibromyalgia Hyperlipidemia - statin Pulmonary hypertension - likely due to structural lung disease. Has outpatient f/u Greater than 30 minutes spent on d/c home with self care Discharge Information Condition at Discharge: Improved Follow Up: Weeks (1) Disposition/Orders: D/C to Home Scheduled Allopurinol (Allopurinol) 100 Mg Tablet, 100 MG PO QHS for ., (Reported) Entered as Reported by: RODOLFO CHAVEZ on 06/14/131932 Last Action: Edited on 10/09/20338 by CM QUIROS Amlodipine Besylate/Benazepril (Amlodipine-Benazepril 10-20 Mg) 1 Each Capsule, 1 EACH PO QHS for ., #1 (Reported) Entered as Reported by: RODOLFO CHAVEZ on 06/14/131932 Last Action: Edited on 10/09/20338 by CM QUIROS Fluticasone/Salmeterol (Advair 100-50 Diskus) 1 Each Disk.w.dev, 1 EACH IH BID, #1 (Reported) Entered as Reported by: RODOLFO CHAVEZ on 06/14/131932 Levothyroxine Sodium (Levothyroxine Sodium) 25 Mcg Tablet, 25 MCG PO DAILY, (Reported) Entered as Reported by: RODOLFO CHAVEZ on 06/14/131932 Morphine Sulfate Er (Ms Contin) 60 Mg Tablet.er, 60 MG PO BID, (Reported) Entered as Reported by: PHILLIP KERNS on 11/30/131848 Paroxetine Hcl (Paxil) 30 Mg Tablet, 60 MG PO HS for /, (Reported) Entered as Reported by: RODOLFO CHAVEZ on 06/14/131932 Last Action: Edited on 10/09/20338 by CM QUIROS Pravastatin Sodium (Pravastatin Sodium) 10 Mg Tablet, 10 MG PO QHS for ., (Reported) Entered as Reported by: RODOLFO CHAVEZ on 06/14/131932 Last Action: Edited on 10/09/20338 by CM QUIROS Scheduled PRN Acetaminophen (Tylenol Extra Strength) 500 Mg Tablet, 500 MG PO Q6HRS PRN, #2 (Reported) Entered as Reported by: KB WOOD on 06/14/132238 Justicifation of Admission Dx: Justifications for Admission: Justification of Admission Dx: Yes CHF: Cardiac Arrhythmias JOSIAS BAKER MD Oct 09, 2020 10:51
--- NOTE | 2020-10-09 10:59 | PDOC2 ---
GIO HERNANDEZ [employer] 10/09/20 1059: CARDIAC CONSULT DATE OF CONSULT Date of Consult DATE: 10/09/20 TIME: 10:57 REASON FOR CONSULT Reason for Consult: Chest pain REFERRING PHYSICIAN Referring Physician: Dr. Gibbs SOURCE Source: Chart review, Patient HISTORY OF PRESENT ILLNESS HISTORY OF PRESENT ILLNESS This is a 65 yo female who presented secondary chest pain. Patient reports pain began Friday night. Describes as stabbing pain in her central to left chest. No associated dizziness, diaphoresis, shortness of breath, or nausea/vomiting. Pain last seconds and resolved without intervention. Pain returned on Friday so she came to the ED for further evaluation and treatment. Took baby ASA. Pain resolved after approximately 15 mins. Patient reports is on the way and would like to be discharged. PAST MEDICAL HISTORY Cardiovascular: CHF, HTN, Hyperlipidemia Pulmonary: COPD, Pneumonia GI: GERD Psych: Anxiety Musculoskeletal: Osteoarthritis Rheumatologic: Fibromyalgia, Gout Endocrine: Diabetes, Hypothyroidism PAST SURGICAL HISTORY Past Surgical History: Appendectomy FAMILY HISTORY Family History: Adopted SOCIAL HISTORY Smoke: Quit ALCOHOL: none Drugs: None Lives: with Family CURRENT MEDICATIONS CURRENT MEDICATIONS Current Medications Medications (Trade) Dose Ordered Sig/Erin Route PRN Reason Start Time Stop Time Status Last Admin Dose Admin Hydromorphone HCl (Dilaudid) 1 mg 1X ONCE IVP 10/09/20 01:00 10/09/20 01:01 DC 10/09/20 01:09 Amlodipine Besylate (Norvasc) 10 mg 1X ONCE PO 10/09/20 04:15 10/09/20 04:16 DC 10/09/20 04:38 Lisinopril (Prinivil) 20 mg 1X ONCE PO 10/09/20 04:15 10/09/20 04:16 DC 10/09/20 04:38 ALLERGIES ALLERGIES: Coded Allergies: latex (Verified Allergy, Intermediate, 10/09/20) ROS Review of System 14 point ROS conducted with pertinent positives noted above in HPI PHYSICAL EXAM General: Alert, Oriented X3, Cooperative, No acute distress HEENT: Atraumatic, Mucous membr. moist/pink Lungs: Clear to auscultation Heart: Regular rate Abdomen: Soft, No tenderness Extremities: No edema, Normal pulses Skin: No significant lesion Neuro: Normal speech, Sensation intact Psych/Mental Status: Mental status NL, Mood NL MUSCULOSKELETAL: Osteoarthritic changes both hands VITALS/I&O VITALS/I&O: Vital Signs Date Time Temp Pulse Resp B/P (MAP) Pulse Ox O2 Delivery O2 Flow Rate FiO2 10/09/20 09:18 92 24 117/63 (81) 96 2.0 10/09/20 04:37 Nasal Cannula 10/09/20 03:47 98.6 98.6 LABS Lab: Laboratory Tests Test 10/08/20 18:10 10/08/20 18:20 10/08/20 21:45 10/09/20 01:05 Urine Opiates Screen Pos (NEG) Urine Methadone Screen Neg (NEG) Urine Barbiturates Neg (NEG) Urine Phencyclidine Screen Neg (NEG) Urine Amphetamine/Methamphetamine Neg (NEG) Urine Benzodiazepines Screen Neg (NEG) Urine Cocaine Screen Neg (NEG) Urine Cannabinoids Screen Pos (NEG) Urine Ethyl Alcohol Neg (NEG) White Blood Count 7.4 x10^3/uL (4.0-11.0) Red Blood Count 3.86 x10^6/uL (3.50-5.40) Hemoglobin 13.4 g/dL (12.0-15.5) Hematocrit 38.8 % (36.0-47.0) Mean Corpuscular Volume 100 fL (79-100) Mean Corpuscular Hemoglobin 35 pg (25-35) Mean Corpuscular Hemoglobin Concent 35 g/dL (31-37) Red Cell Distribution Width 14.0 % (11.5-14.5) Platelet Count 170 x10^3/uL (140-400) Neutrophils (%) (Auto) 59 % (31-73) Lymphocytes (%) (Auto) 29 % (24-48) Monocytes (%) (Auto) 8 % (0-9) Eosinophils (%) (Auto) 3 % (0-3) Basophils (%) (Auto) 1 % (0-3) Neutrophils # (Auto) 4.4 x10^3/uL (1.8-7.7) Lymphocytes # (Auto) 2.2 x10^3/uL (1.0-4.8) Monocytes # (Auto) 0.6 x10^3/uL (0.0-1.1) Eosinophils # (Auto) 0.2 x10^3/uL (0.0-0.7) Basophils # (Auto) 0.0 x10^3/uL (0.0-0.2) D-Dimer (Misty) 2.64 ug/mlFEU (0.00-0.50) H Sodium Level 143 mmol/L (136-145) Potassium Level 4.4 mmol/L (3.5-5.1) Chloride Level 106 mmol/L (98-107) Carbon Dioxide Level 28 mmol/L (21-32) Anion Gap 9 (6-14) Blood Urea Nitrogen 12 mg/dL (7-20) Creatinine 0.8 mg/dL (0.6-1.0) Estimated GFR (Cockcroft-Gault) 72.0 BUN/Creatinine Ratio 15 (6-20) Glucose Level 85 mg/dL (70-99) Calcium Level 8.7 mg/dL (8.5-10.1) Phosphorus Level 4.3 mg/dL (2.6-4.7) Magnesium Level 1.9 mg/dL (1.8-2.4) Total Bilirubin 0.7 mg/dL (0.2-1.0) Aspartate Amino Transferase (AST) 36 U/L (15-37) Alanine Aminotransferase (ALT) 36 U/L (14-59) Alkaline Phosphatase 127 U/L (46-116) H Troponin I Quantitative < 0.017 ng/mL (0.000-0.055) < 0.017 ng/mL (0.000-0.055) < 0.017 ng/mL (0.000-0.055) XS-Tqy-X-Type Natriuretic Peptide 100 pg/mL (0-124) Total Protein 7.2 g/dL (6.4-8.2) Albumin 4.0 g/dL (3.4-5.0) Albumin/Globulin Ratio 1.3 (1.0-1.7) Lipase 92 U/L (73-393) Test 10/09/20 07:28 Troponin I Quantitative < 0.017 ng/mL (0.000-0.055) Laboratory Tests 10/08/20 18:20 Laboratory Tests 10/08/20 18:20 ECHOCARDIOGRAM ECHOCARDIOGRAM <Conclusion> The left ventricular systolic function is normal. The Ejection Fraction is 65-70%. There is normal LV segmental wall motion. Transmitral Doppler flow pattern is Grade I-abnormal relaxation pattern. There is no evidence of significant pericardial effusion. DATE: 04/06/19 1609 STRESS TEST STRESS TEST Conclusion 1. Regadenoson cardioisotope stress test did not show any evidence of ischemia or infarct. 2. Normal left ventricular systolic function with ejection fraction calculated at 76%. 3. Low risk for cardiac events. DATE: 06/29/19 1154 ASSESSMENT/PLAN ASSESSMENT/PLAN 1. Chest pain, atypical. AMI ruled out. MPI 07/05 without evidence of ischemia or infarct 2. Chronic diastolic CHF; clinically compensated 3. Hypertension; controlled 4. Hyperlipidemia 5. Fibromyalgia 6. Elevated ddimer; CTA negative for PE 7. Arrhythmia; brief burst of NSVT noted on tele. Mg, K WNL 8. Hypothyroidism Recommendations Patient wanting to be discharged Will arrange outpatient echo and f/u in our office with Dr. Simmons Consider further ischemic evaluation if CP recurrent NEREIDA SIMMONS MD 10/09/20 8234: CARDIAC CONSULT ASSESSMENT/PLAN ASSESSMENT/PLAN Patient seen and examined. Agree with [employer]'s assessment and plan. CP with atypical features. MO ruled out. Chr diast HF well compensated Plan echo and MPI as outpatient Thank you for your consultation GIO HERNANDEZ APRN Oct 09, 2020 10:59 NEREIDA SIMMONS MD Oct 09, 2020 18:44
[2020-10-09 11:18] VITALS: BP 131/76
== END 2020-10-09 11:56 | disposition home or self-care (01) | DRG 392 ==
LOC: ER 17:08 → ED HOLD 10-09 01:58
PROVIDERS: ADMIT Internal Medicine; ATTEND Internal Medicine
DX: K21.9 Gastro-esophageal reflux disease without esophagitis (principal); I47.2 Ventricular tachycardia; I50.32 Chronic diastolic (congestive) heart failure; E03.9 Hypothyroidism, unspecified; E66.01 Morbid (severe) obesity due to excess calories; J44.9 Chronic obstructive pulmonary disease, unspecified; I11.0 Hypertensive heart disease with heart failure; E78.5 Hyperlipidemia, unspecified; I27.20 Pulmonary hypertension, unspecified; M79.7 Fibromyalgia; F41.9 Anxiety disorder, unspecified; M19.90 Unspecified osteoarthritis, unspecified site; M10.9 Gout, unspecified; E11.9 Type 2 diabetes mellitus without complications; R79.89 Other specified abnormal findings of blood chemistry; Z90.49 Acquired absence of other specified parts of digestive tract; Z90.710 Acquired absence of both cervix and uterus; Z91.040 Latex allergy status; Z87.11 Personal history of peptic ulcer disease; Z87.891 Personal history of nicotine dependence
CPT/HCPCS: 36415; 71045; 71275; 80053; 80307; 83690; 83735; 83880; 84100; 84484; 85025; 85379; 93005; 96374; 99285; J1170

== ENCOUNTER → 2020-11-09 | Outpatient (CLI) | payer BC ==
--- NOTE | 2020-11-10 13:10 | CARD ---
MR#: [id number] Date of Study: 11/09/2020 Ordering Physician: NEREIDA SANDHU, Referring Physician: NEREIDA SANDHU Tech: Cyndi Cummings KENDAL APPROVED REPORT EXAM: Two-dimensional and M-mode echocardiogram with Doppler and color Doppler. Other Information Quality : Technically LimitedHR: 93bpm Rhythm : NSR INDICATION COPD RISK FACTORS Hypertension Obesity 2D DIMENSIONS RVDd3.0 (2.9-3.5cm)Left Atrium(2D)3.8 (1.6-4.0cm) IVSd1.0 (0.7-1.1cm)Aortic Root(2D)2.7 (2.0-3.7cm) LVDd4.3 (3.9-5.9cm)LVOT Diameter2.0 (1.8-2.4cm) PWd1.0 (0.7-1.1cm)LVDs2.6 (2.5-4.0cm) FS (%) 39.0 %SV56.7 ml LVEF(%)69.8 (>50%) Aortic Valve AoV Peak Beau.385.7cm/sAoV VTI80.5cm AO Peak GR.59.5mmHgLVOT Peak Beau.121.2cm/s AO Mean GR.36mmHgAVA (VMAX)1.00cm2 Mitral Valve MV E Kursynte877.9cm/sMV DECEL DHHS121ig MV A Nxzousov763.5cm/sE/A Ratio0.9 Pulmonary Valve PV Peak Cpvzhxur228.8cm/s LEFT VENTRICLE The left ventricle is normal size. There is borderline concentric left ventricular hypertrophy. The l eft ventricular systolic function is normal and the ejection fraction is within normal range. Estimat ed ejection fraction 55-60%. There is normal LV segmental wall motion. Transmitral Doppler flow patte rn is Grade I-abnormal relaxation pattern. RIGHT VENTRICLE The right ventricle is normal size. There is normal right ventricular wall thickness. The right ventr icular systolic function is normal. ATRIA The left atrium size is normal. The right atrium size is normal. The interatrial septum is intact wit h no evidence for an atrial septal defect or patent foramen ovale as noted on 2-D or Doppler imaging. AORTIC VALVE The aortic valve is calcified and displays decreased opening. Not well visualized. Doppler and Color Flow revealed trace aortic regurgitation. There is moderate valvular aortic stenosis. MG 36 mm Hg. MITRAL VALVE The mitral valve is normal in structure and function. There is no evidence of mitral valve prolapse. There is no mitral valve stenosis. Doppler and Color-flow revealed mild mitral regurgitation. TRICUSPID VALVE The tricuspid valve is normal in structure and function. Doppler and Color Flow revealed no tricuspid valve regurgitation noted. There is no tricuspid valve stenosis. PULMONIC VALVE Doppler and Color Flow revealed no pulmonic valvular regurgitation. There is no pulmonic valvular prasanth nosis. GREAT VESSELS The aortic root is normal in size. The ascending aorta is normal in size. The IVC is normal in size a nd collapses >50% with inspiration. PERICARDIAL EFFUSION There is no evidence of significant pericardial effusion. Critical Notification Critical Value: No <Conclusion> The left ventricular systolic function is normal and the ejection fraction is within normal range. E stimated ejection fraction 55-60%. There is normal LV segmental wall motion. The aortic valve is calcified and displays decreased opening. Not well visualized. There is moderate valvular aortic stenosis. MG 36 mm Hg. Signed by : Aniket Combs, Electronically Approved : 11/10/2020 13:10:28
== END ==
LOC: ECHO 14:57
PROVIDERS: ATTEND Internal Medicine Cardiovascular Disease
DX: I08.0 Rheumatic disorders of both mitral and aortic valves (principal)
CPT/HCPCS: 93306

== ENCOUNTER → 2021-01-01 | Outpatient (CLI) | payer BC ==
--- NOTE | 2021-01-01 15:18 | RAD ---
EXAM: CT CHEST WITHOUT CONTRAST HISTORY: Hematemesis COMPARISON: CTA chest 10/08/2020 TECHNIQUE: Helical CT of the chest performed without contrast. Coronal and sagittal reformats were o btained. One or more of the following individualized dose reduction techniques were utilized for this examinat ion: 1. Automated exposure control 2. Adjustment of the mA and/or kV according to patient size 3. Use of iterative reconstruction technique. FINDINGS: Thyroid gland and thoracic inlet: Unremarkable. Heart and great vessels: Heart is normal in size. No pericardial effusion. There are coronary artery calcifications. Thoracic aorta is normal in caliber with mild calcified atherosclerosis. 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 Mediastinum and cristo: No lymphadenopathy. Lungs and pleura: Unchanged 7 mm pulmonary nodule in the right lower lobe (image 32, series 3). There are peripheral predominant groundglass and reticular opacities in throughout the lungs. This may be slightly increased in the lateral right lower lobe (image 42, series 3) and in the left upper lobe (i mage 15, series 3 was present but is otherwise unchanged Some of the differences could be due to diff erences in slice thickness. Mild bronchiectasis.). No pleural effusion. Central airways are clear. Chest wall and axillae: Unremarkable. No axillary lymphadenopathy. Upper abdomen: Liver is lobulated and somewhat nodular in contour. The upper abdomen is otherwise unr emarkable. No acute osseous abnormality. Bones: No acute osseous abnormality. IMPRESSION: 1. Diffuse peripheral predominant reticular and groundglass opacities suspicious for interstitial lazaro ng disease, similar to 10/08/2020. There may be mildly increased opacities in the lateral right lower lobe and anterior left apex, which could be due to superimposed infectious or inflammatory process. 2. A 7 mm pulmonary nodule in the right lower lobe is unchanged. 3. Lobulated and somewhat contour of the liver. Correlate for cirrhosis. Electronically signed by: Janine Adkins MD (01/01/2021 3:15 PM) [id number]
== END ==
LOC: CT 11:33
PROVIDERS: ATTEND Family Medicine
DX: J47.9 Bronchiectasis, uncomplicated (principal); R91.1 Solitary pulmonary nodule; I70.0 Atherosclerosis of aorta; I25.10 Atherosclerotic heart disease of native coronary artery without angina pectoris; K92.0 Hematemesis
CPT/HCPCS: 71250